=== PATIENT | male | born 1990 | race Caucasian/White ===

== ENCOUNTER → 2016-10-24 | Outpatient (CLI) | payer BC ==
--- NOTE | 2016-10-24 18:26 | DIAGNOSTIC IMAGING REPORT ---
RIGHT KNEE 2 VIEWS; LEFT KNEE 2 VIEWS CLINICAL HISTORY: Bilateral knee pain. FINDINGS: An AP standing view of both knees with a crosstable lateral view of the left knee and a lateral view of the right knee are obtained. No prior studies are available for comparison at the time of dictation. The skeletal structures are well mineralized. No fracture is seen in either knee. The joint spaces are well-maintained in both knees. No joint effusion is identified. Mild prepatellar soft tissue edema is suggested bilaterally. IMPRESSION: No acute bony abnormality is seen in either knee. Electronically signed by: Jerry Martin M.D. 10/24/2016 6:25 PM Dictated Date/Time: 10/24/2016 6:23 PM
== END | disposition home or self-care (01) ==
LOC: C.RAD 17:44
PROVIDERS: ATTEND Family Medicine
DX: M25.562 Pain in left knee (principal)